=== PATIENT | female | born 1980 | race Asian ===

== ENCOUNTER 2017-09-16 12:33 | Emergency (ER) | payer MEDICAID ==
[2017-09-16] MEDS: FLUORESCEIN STRIP LEFT EYE (18:21)
== END 2017-09-16 18:31 | disposition home or self-care (01) ==
LOC: E/R 12:33
DX: H53.8 Other visual disturbances (principal); E11.9 Type 2 diabetes mellitus without complications; R51 Headache
CPT/HCPCS: 70450; 76536; 99285-25

== ENCOUNTER 2017-10-06 10:23 | Emergency (ER) | payer MEDICAID ==
[2017-10-06 11:08] LABS: URINE PH (Dip) POC 5.5 (5.0-8.5)
[2017-10-06 11:08] LABS: URINE BLOOD (Dip) POC 1+ (NEGATIVE); URINE GLUCOSE (Dip) POC >=1.0% (NEGATIVE); URINE KETONES (Dip) POC Negative (NEGATIVE); URINE LEUKOCYTE EST (Dip) POC 1+ (NEGATIVE); URINE NITRITE (Dip) POC Negative (NEGATIVE); URINE TOTAL PROTEIN POC 1+ (NEGATIVE)
== END 2017-10-06 11:25 | disposition home or self-care (01) ==
LOC: FTE 10:23
DX: N39.0 Urinary tract infection, site not specified (principal); E11.9 Type 2 diabetes mellitus without complications
CPT/HCPCS: 81003; 99283